=== PATIENT | female | born 1995 | race Caucasian/White ===

== ENCOUNTER 2024-05-27 13:34 | Emergency (ER) | payer OTHER, SELFPAY ==
[2024-05-27 13:42] VITALS: BP 114/74; PULSE 83; RESP 16; TEMP 36.8; O2SAT 99; BMI 25.9
[2024-05-27 14:59] LABS: Add Manual Diff / Slide Review NO; Basophils Absolute Auto 100 /uL (0-100); Basophils Percent Auto 0.7 % (0-2); Eosinophils Absolute Auto 100 /uL (0-450); Eosinophils Percent Auto 1.3 % (2-4); Hematocrit 41.8 % (36-46); Lymphocytes Absolute Auto 1400 /uL (1100-4500); Lymphocytes Percent Auto 18.2 % (25-40); Mean Corpuscular HGB Conc 33.4 % (30-36); Mean Corpuscular Hemoglobin 28.2 PG (26-34); Mean Corpuscular Volume 84.3 fL (80-100); Monocytes Absolute Auto 700 /uL (0-900); Monocytes Percent Auto 8.7 % (3-14); Neutrophils Absolute Auto 5600 /uL (1500-7000); Neutrophils Percent Auto 71.1 % (50-75); Platelet Count 205 X10^3/uL (150-400); Red Blood Cell Count 4.96 X10^6/uL (4.0-5.2); Red Cell Distribution Width 14.2 % (11.6-14.8); White Blood Cell Count 7.8 X10^3/uL (4.5-11.0)
[2024-05-27 15:10] LABS: Alanine Aminotransferase 23 IU/L (<35); Albumin 4.5 g/dL (3.5-5.0); Albumin Globulin Ratio 1.5 (1.0-2.8); Alkaline Phosphatase 40 U/L (38-126); Aspartate Aminotransferase 26 IU/L (14-36); BUN Creatinine Ratio 19.2 (6-22); Bilirubin Total 0.3 mg/dL (0.2-1.3); Blood Urea Nitrogen 10 mg/dL (7-17); Carbon Dioxide 22 mmol/L (22-32); Chloride 104 mmol/L (98-107); Estimated Glomerular Filt Rate > 60 mL/min (>60); Glucose 81 mg/dL (70-100); HEMOLYSIS < 15 (0-50); Lipase 74 U/L (23-300); Sodium 136 mmol/L (137-145); Total Protein 7.5 g/dL (6.3-8.2)
[2024-05-27] MEDS: ONDANSETRON 4 MG/2 ML INJ IV (15:18)
[2024-05-27] MEDS: SODIUM CHLORIDE 0.9% 1,000 ML 1000 ML IV ×2 (15:18→16:40)
--- NOTE | 2024-05-27 15:24 | ED_ITS ---
HPI - Recheck/Abnormal Lab/Rx General Chief Complaint: Recheck/Abnormal Lab/Rx Stated Complaint: /dehydration x2 days Time Seen by Provider: 05/27/24 15:14 Mode of arrival: Ambulatory History of Present Illness HPI narrative: Ms. Childs is a pleasant 29 year old female, currently about 9 weeks 6 days based on LMP 03/20/2024 with a past medical history of bipolar disorder on lamotrigine, sertraline who presents to the emergency department for persistent nausea and vomiting x2 days. Patient states for about the last 2 weeks during this she has been really nauseous with frequent vomiting. She has been evaluated in walk-in clinics and was prescribed Unisom and B6 which she has been taking without relief. She did have an initial intake appointment with her OBGYN at [facility] but has not yet had her 1st ultrasound. States that over the last 2 days she has been able to tolerate solid food but any time she tries to drink liquids she has immediate nausea and vomiting. She called her OBGYN office and they did send her a prescription for Phenergan which she has not yet picked up. She is concerned that she is dehydrated and said she has only been able to keep down solids and not fluids. She denies any other symptoms, she has no abdominal pain, pelvic cramping, dysuria, vaginal bleeding, fevers or other concerns. She is having normal bowel movements. Surgical history involves uterine polyp removal Related Data Previous Rx's Medication Instructions Recorded cephalexin 500 mg capsule 500 mg PO TID 5 days #15 caps 05/27/24 Allergies Allergy/AdvReac Type Severity Reaction Status Date / Time amoxicillin Allergy Verified 05/27/24 13:42 Review of Systems Review of Systems ROS Unobtainable: All systems reviewed & are unremarkable except as noted in HPI and below Patient History Social History Smoking Status: Never smoker Smoking Status: Never smoker Exam Narrative Exam Narrative: GENERAL: 29 year old patient appears stated age. Well-developed patient, in no acute distress. HEAD: Atraumatic. Normocephalic. NECK: Trachea midline. Cervical ROM intact. CARDIOVASCULAR: Regular rate and rhythm. RESPIRATORY: ?Nonlabored respirations. ?Speaking in clear, full sentences. ?Clear to auscultation. Breath sounds equal bilaterally. No wheezes, rales, or rhonchi. ? GASTROINTESTINAL: Abdomen soft, non-tender, nondistended. Normal BS. EXTREMITIES: No edema or joint tenderness. BACK: Nontender without deformity or crepitance. No flank tenderness. NEURO: AOx3. ?Clear speech. ?Moves all 4 extremities appropriately. SKIN: No rash or erythema of visible areas Initial Vital Signs Initial Vital Signs: Vital Signs Temperature 98.3 F 05/27/24 13:42 Pulse Rate 83 05/27/24 13:42 Respiratory Rate 16 05/27/24 13:42 Blood Pressure 114/74 05/27/24 13:42 Pulse Oximetry 99 05/27/24 13:42 Oxygen Delivery Method Room Air 05/27/24 13:42 Course Orders Ordered: ED Orders 05/27/24 14:47 Complete Blood Count AUTO DIFF Stat Comprehensive Metabolic Panel Stat Lipase Stat 05/27/24 16:20 Urine Microscopic Stat Discontinued Medications Sodium Chloride (Normal Saline 0.9%) 1,000 mls @ 1,000 mls/hr IV BOLUS ONE Stop: 05/27/24 16:03 Last Infusion: 05/27/24 16:15 Dose: Infused Documented By: Admin: 05/27/24 15:18 Dose: 1,000 mls/hr Documented By: CARMELLA Sodium Chloride (Normal Saline 0.9%) 1,000 mls @ 1,000 mls/hr IV BOLUS ONE Stop: 05/27/24 17:22 Last Infusion: 05/27/24 17:22 Dose: Infused Documented By: Admin: 05/27/24 16:40 Dose: 1,000 mls/hr Documented By: CARMELLA Metoclopramide HCl (Metoclopramide 10 Mg/2 Ml Inj) 10 mg IV NOW ONE Stop: 05/27/24 16:28 Last Admin: 05/27/24 16:40 Dose: 10 mg Documented By: CARMELLA Ondansetron HCl (Ondansetron 4 Mg/2 Ml Inj) 4 mg IV NOW PRN PRN Reason: Nausea And Vomiting Last Admin: 05/27/24 15:18 Dose: 4 mg Documented By: CARMELLA Ondansetron HCl (Ondansetron 4 Mg Odt) 4 mg SL NOW PRN PRN Reason: Nausea And Vomiting Last Admin: 05/27/24 17:31 Dose: 4 mg Documented By: KB Vital Signs Vital signs: Vital Signs - 8 hr 05/27/24 13:42 05/27/24 17:31 Temperature 98.3 F Pulse Rate 83 80 Respiratory Rate 16 18 Blood Pressure 114/74 Pulse Oximetry 99 98 Oxygen Delivery Method Room Air Room Air MDM - Recheck/Abnormal Lab/Rx Medical Records Medical records narrative: None available. Lab Data 05/27/24 14:47 05/27/24 14:47 Labs: Lab Results 05/27/24 05/27/24 Range/Units 14:47 16:20 WBC 7.8 (4.5-11.0) X10^3/uL RBC 4.96 (4.0-5.2) X10^6/uL Hgb 14.0 (12.0-16.0) g/dL Hct 41.8 (36-46) % MCV 84.3 (80-100) fL MCH 28.2 (26-34) PG MCHC 33.4 (30-36) % RDW 14.2 (11.6-14.8) % Plt Count 205 (150-400) X10^3/uL Neut % (Auto) 71.1 (50-75) % Lymph % (Auto) 18.2 L (25-40) % Charlton % (Auto) 8.7 (3-14) % Eos % (Auto) 1.3 L (2-4) % Baso % (Auto) 0.7 (0-2) % Neut # (Auto) 5600 (7671-4438) /uL Lymph # (Auto) 1400 (1476-6065) /uL Charlton # (Auto) 700 (0-900) /uL Eos # (Auto) 100 (0-450) /uL Baso # (Auto) 100 (0-100) /uL Sodium 136 L (137-145) mmol/L Potassium 4.0 (3.4-5.1) mmol/L Chloride 104 (98-107) mmol/L Carbon Dioxide 22 (22-32) mmol/L BUN 10 (7-17) mg/dL Creatinine 0.52 (0.52-1.04) mg/dL Estimated GFR > 60 (>60) mL/min BUN/Creatinine Ratio 19.2 (6-22) Glucose 81 (70-100) mg/dL Calcium 9.0 (8.4-10.2) mg/dL Total Bilirubin 0.3 (0.2-1.3) mg/dL AST 26 (14-36) IU/L ALT 23 (<35) IU/L Alkaline Phosphatase 40 (38-126) U/L Total Protein 7.5 (6.3-8.2) g/dL Albumin 4.5 (3.5-5.0) g/dL Globulin 3.0 (1.7-4.1) g/dL Albumin/Globulin Ratio 1.5 (1.0-2.8) Lipase 74 (23-300) U/L Urine RBC None seen (0-5/HPF) Urine WBC None seen (0-5/HPF) Ur Squamous Epith Cells 0-1 /hpf (0-5/HPF) Urine Bacteria Many (>30) H (None) Ur Culture Indicated? Cult not indicated Vol Urine Centrifuged 10ml (spun) MDM Narrative Medical decision making narrative: 29 year old female, currently about 9 weeks 6 days based on LMP 03/20/2024 with a past medical history of bipolar disorder on lamotrigine, sertraline who presents to the emergency department for persistent nausea and vomiting x2 days. Differential diagnosis includes but is not limited to nausea and vomiting of , hyperemesis gravidarum, dehydration, electrolyte abnormality, gastroenteritis, etc. On exam patient is in no acute distress, nontoxic appearing, all vital signs within normal limits. Lab work initiated in triage and she was given 4 mg of Zofran and 1 L of IV fluids. Her abdomen is soft and nontender and she has having no abdominal pain, pelvic cramping or bleeding, no emergent pelvic ultrasound warranted at this time. Labs reassuring with normal WBC count 7.8, hemoglobin 14.0 hematocrit 41.8. Sodium 136, potassium 4.0, BUN 10 creatinine 0.52. Normal LFTs and lipase. Urine micro reveals many bacteria, therefore we will treat as asymptomatic bacteria urine with Keflex p.o. t.i.d. x5 days. Patient was feeling much better after 1 L of normal saline however after attempting p.o. challenge she did have an episode of nausea again therefore was given Reglan and additional fluids. After this treatment she was tolerating p.o. and requesting discharge home. Discussed with the patient that Phenergan is preferred to Zofran in , she already has a prescription sent to her pharmacy from her OBGYN. We discussed strict ED return precautions, she has an appointment with her OBGYN later this week. She verbalized understanding of all information is agreeable with the plan. She is stable for discharge home. Discharge Plan Departure Patient Disposition: Home Clinical Impression: Vomiting during , Asymptomatic bacteriuria in Instructions: DI for Vomiting -- Adult Activity Restrictions/Additional Instructions: Thank you for coming to the emergency department. Today you were treated with IV fluids and IV nausea medication. Your lab work was overall reassuring however your urinalysis did show bacteria which would like to treat in . I have sent a course of antibiotics to your pharmacy that you may start tomorrow the please talk to your OBGYN for further evaluation. Please return to the emergency department you develop any new or worsening symptoms. Please use the prescribed Phenergan that was previously sent to your pharmacy if needed for nausea. Please follow up with your primary care doctor within the next 2-3 days for ER follow-up. (If you do not have a PCP you can call [phone]. ?to schedule an appointment with an [facility] Primary Care Provider) IF YOU DEVELOP ANY NEW OR WORSENING SYMPTOMS, RETURN TO THE ER! Please read the attached instructions, they highlight more specific treatments and interventions for you at home. Thank you for letting me participate in your care, Kianna Pinedo PA-C Prescriptions: New cephalexin 500 mg capsule 500 mg PO TID 5 Days Qty: 15 0RF Stand Alone Forms: Patient Portal/API/Survey
[2024-05-27] MEDS: METOCLOPRAMIDE 10 MG/2 ML INJ IV (16:40)
--- NOTE | 2024-05-27 16:51 | PC.NURSE ---
1625 failed PO fluid challenge, took sips and unable to keep PO down IV Reglan given & 2nd Liter of NS infusing
[2024-05-27 17:01] LABS: Bacteria Urine Many (>30); Culture Indicated Urine Cult Not Indicated; RBC Urine None Seen (0-5/HPF); Squamous Epithelial Cell Urine 0-1 /HPF (0-5/HPF); Urine Volume 10mL (spun); WBC Urine None Seen (0-5/HPF)
--- NOTE | 2024-05-27 17:23 | PC.NURSE ---
tolerating PO eating crackers, sipping water - has appetite; skin turgor improved, skin color pink, warm, dry; Reports feeling much better and nausea gone after Reglan; requesting PIV out and to go home; has OB appt Tommorrow
[2024-05-27 17:31] VITALS: PULSE 80; RESP 18; O2SAT 98
[2024-05-27] MEDS: ONDANSETRON 4 MG ODT SL (17:31)
== END 2024-05-27 17:44 | disposition home or self-care (01) ==
PROVIDERS: Emergency Medicine; Emergency Provider Physician Assistant
DX: O21.9 Vomiting of pregnancy, unspecified (principal); O26.891 Other specified pregnancy related conditions, first trimester; R82.71 Bacteriuria; Z3A.09 9 weeks gestation of pregnancy
CPT/HCPCS: 36415; 80053; 81015; 83690; 85025; 96361; 96374; 96375; 99284; J2405; J2765

== ENCOUNTER → 2024-06-26 11:22 | Outpatient (CLI) | payer OTHER, SELFPAY ==
[2024-06-26 11:58] LABS: Add Manual Diff / Slide Review NO; Basophils Absolute Auto 0 /uL (0-100); Basophils Percent Auto 0.6 % (0-2); Eosinophils Absolute Auto 100 /uL (0-450); Eosinophils Percent Auto 1.8 % (2-4); Hematocrit 40.5 % (36-46); Hemoglobin 13.6 g/dL (12.0-16.0); Lymphocytes Absolute Auto 1300 /uL (1100-4500); Lymphocytes Percent Auto 20.3 % (25-40); Mean Corpuscular HGB Conc 33.5 % (30-36); Mean Corpuscular Hemoglobin 28.5 PG (26-34); Monocytes Absolute Auto 500 /uL (0-900); Monocytes Percent Auto 8.4 % (3-14); Neutrophils Absolute Auto 4500 /uL (1500-7000); Neutrophils Percent Auto 68.9 % (50-75); Platelet Count 202 X10^3/uL (150-400); Red Blood Cell Count 4.76 X10^6/uL (4.0-5.2); Red Cell Distribution Width 14.3 % (11.6-14.8); White Blood Cell Count 6.5 X10^3/uL (4.5-11.0)
[2024-06-26 12:32] LABS: Natera Collection Specimen Collected
[2024-06-26 12:43] LABS: Appearance Urine UA CLOUDY; Bilirubin Urine UA NEGATIVE (NEGATIVE); Color Urine UA YELLOW; Glucose Urine UA NEGATIVE (Negative); Ketones Urine UA NEGATIVE (NEGATIVE); Leukocyte Esterase Urine UA NEGATIVE (NEGATIVE); Nitrite Urine UA NEGATIVE (Negative); Occult Blood Urine UA NEGATIVE (Negative); Protein Urine UA NEGATIVE (Negative); Urobilinogen Urine UA 0.2 E.U./dL (0.2)
[2024-06-26 12:48] LABS: pH Urine UA 7.5 (4.5-8.0)
[2024-06-26 14:40] LABS: Hepatitis B Surface Antigen NEGATIVE s/c (NEGATIVE); Rubella Antibody IgG 41.7 IU/mL (>15)
[2024-06-26 14:56] LABS: HIV 1 & 2 Ab/Ag 4th Gen Combo NEGATIVE (NEGATIVE); Hep C Virus Ab w/Reflex Quant NEGATIVE s/c (NEGATIVE)
[2024-06-27 03:10] LABS: RPR Screen Non Reactive (Non Reactive)
[2024-06-27 10:11] LABS: Varicella IgG Antibody Reactive (Non Reactive)
== END ==
PROVIDERS: Referring Provider Family Medicine; Visit Provider Family Medicine
DX: Z34.02 Encounter for supervision of normal first pregnancy, second trimester (principal)
CPT/HCPCS: 80055; 81003; 86787; 86803; 86850; 86900; 86901; 87086; 87389

== ENCOUNTER → 2024-08-10 13:36 | Outpatient (CLI) | payer OTHER, SELFPAY ==
--- NOTE | 2024-08-10 13:38 | DI.US.S_ITS ---
PROCEDURE: US OB >= 14 WEEKS FETUS INDICATIONS: Complete Anatomy Scan OUTSIDE/PRIOR DATING DATA: Last menstrual period (LMP): 03/20/2024. LMP-based estimated date of delivery (SHAY): 12/25/2024. First dating scan (date and location): 06/04/2024. Estimated date of delivery (SHAY) from first dating scan: 12/22/2024. The calculations are made using the working SHAY of 12/25/2024. TECHNIQUE: Real-time scanning was performed of the fetus, with image documentation and biometric measurements. Endovaginal scanning: No COMPARISON: None. FINDINGS: General: A single living intrauterine gestation is present. Presentation: Vertex. Placenta: Placental position is posterior , without previa. Amniotic fluid index: 16.6 cm, normal range is 5-24 cm. Single deepest vertical pocket is 5.1 cm. heart rate: 147 beats per minute. Maternal cervical canal: 5.9 cm long. Normal lower limit is 2.5 cm. biometrics: Biparietal diameter: 5.2 cm, 21 week 5 day Head circumference: 18.8 cm, 21 week 0 day Abdominal circumference: 17.0 cm, 22 week 0 day Femur length: 3.4 cm, 22 week 4 day Clinically estimated gestational age: 20 week 3 day Composite gestational age from present scan: 21 week 2 day Estimated weight and percentile: 418 g, 90 percentile Anatomic survey: Neuro: Ventricles are non-dilated at less than 10 mm. Cisterna magna is normal at 3-11 mm. Cerebellum is normal in size and morphology. Nuchal skin fold: Normal at less than 6 mm between 14-21 weeks gestational age. Face: Nose and lips, facial profile are normal. Spine: No evidence for spina bifida. Heart: 4-chambered heart is present, with normal ventricular outflow tracts. Diaphragm: Diaphragm is intact. Stomach: Left-sided stomach is present. Kidneys: No hydronephrosis. Normal is less than 5 mm in 2nd trimester, less than 7 mm in 3rd trimester. Cord: 3-vessel cord has orthotopic insertion. Bladder: Normal in size. Extremities: All 4 extremities identified. IMPRESSION: Single live intrauterine consistent with 21 week 2 day gestation Approved by: Michel Lindo M.D. on 08/13/2024 at 11:27
== END ==
PROVIDERS: Referring Provider Family Medicine; Visit Provider Family Medicine
DX: Z36.3 Encounter for antenatal screening for malformations (principal); Z3A.21 21 weeks gestation of pregnancy
CPT/HCPCS: 76811

== ENCOUNTER 2024-10-07 20:05 | Observation (INO) | payer OTHER, SELFPAY ==
[2024-10-07] VITALS (7 sets, daily range): BP systolic 101–123; BP diastolic 63–69; PULSE 80–94; RESP 13–26; TEMP 36.7; O2SAT 95–97; BMI 30.4
[2024-10-07] MEDS: MINERAL OIL 1 EACH ENEMA PR (23:03)
[2024-10-07] MEDS: ONDANSETRON 4 MG ODT SL (23:08)
--- NOTE | 2024-10-07 23:26 | ED.ABDPAIN ---
HPI - Abdominal Pain General Chief Complaint: Abdominal Pain Stated Complaint: Abd pain, hemorrhoids x 5days Time Seen by Provider: 10/07/24 22:40 Source: patient Mode of arrival: Wheelchair History of Present Illness HPI narrative: 29-year-old primigravida with EDC 12/25/2024, current estimated gestational age 28.5 weeks, complaining of possible constipation. No vaginal bleeding or leaking of fluids. Not really feeling contractions. No fevers or chills. No cough or shortness of breath. Related Data Home Medications ?Medication ?Instructions ?Recorded ?Confirmed lamotrigine 200 mg tablet,extended 200 mg PO DAILY 06/07/24 10/08/24 release 24 hr vit no.95-ferrous 1 tab PO DAILY 06/07/24 10/08/24 fumarate 28 mg-folic acid 800 mcg tablet ( Multivitamins) sertraline 50 mg tablet 50 mg PO DAILY 06/07/24 10/08/24 lamotrigine 200 mg tablet 200 mg PO DAILY 08/24/24 10/08/24 Previous Rx's ?Medication ?Instructions ?Recorded doxylamine succinate 25 mg tablet 25 mg PO BEDTIME PRN nausea and 07/18/24 (Unisom (doxylamine)) vomiting #30 tabs ondansetron 8 mg disintegrating 8 mg PO BID PRN nausea and 07/18/24 tablet vomiting #60 tabs Allergies Allergy/AdvReac Type Severity Reaction Status Date / Time shrimp Allergy Severe Swelling Verified 10/08/24 00:08 of Lip/Tongue/Throat amoxicillin Allergy Mild Rash Verified 10/08/24 00:08 grapefruit Allergy Mild Rash Verified 10/08/24 00:08 banana AdvReac Intermediate Abdominal Verified 10/08/24 00:08 Pain Patient History Medical History (Updated 10/07/24 @ 23:37 by Francisco Ramirez MD) Infertility Bacterial vaginitis (~2023) Concussion Endometrial polyp Surgical History (Updated 06/07/24 @ 12:32 by Rachel Grigsby RN) [place] teeth extracted History of removal of skin mole (~2021) History of hysteroscopy (~03/2024) Family History (Updated 06/07/24 @ 11:06 by Rachel Grigsby RN) Aunt Breast cancer Grandmother Thyroid disease History of thyroid surgery Father Obesity Prediabetes Substance abuse Aunt H/O: hysterectomy POTS (postural orthostatic tachycardia syndrome) Grandfather Skin cancer Grandfather Dementia Uncle Congenital hip dysplasia Social History marital status: number of children: 0 household members: spouse lives independently: Yes caregiver/support person: No housing: house pets and animals: Yes (chickens, dog, cat) education level: vocational occupational status: employed (retail) current occupational exposures/hazards: No special malu needs: No travel history: recent (going to [place] next week) Smoking Status: Never smoker Tobacco: How many years used: 1 second hand exposure: Yes ( vapes, not around pt since ) alcohol intake: former (occasionally when not ) substance use type: does not use during the past year weight has: other (lost ~30 lb but gained it back after surgery) well-balanced diet: daily or most days (mostly in smoothies) daily servings fruits/ve-4 caffeine: Yes (quit with ) Smoking Status: Never smoker Exam Narrative Exam Narrative: GENERAL: Well-developed patient, in mild distress. HEAD: Atraumatic. Normocephalic. EYES: Pupils equal round and reactive. Extraocular motions intact. No scleral icterus. No injection or drainage. ENT: Nose without bleeding, purulent drainage. Throat without erythema, tonsillar hypertrophy or exudate. Airway patent. NECK: Trachea midline. Non tender CARDIOVASCULAR: Regular rate and rhythm without murmurs, gallops, or rubs. RESPIRATORY: Clear to auscultation. Breath sounds equal bilaterally. No wheezes, rales, or rhonchi. GASTROINTESTINAL: Abdomen gravid, EFM in place. Nontender. EXTREMITIES: No edema or joint tenderness. BACK: Nontender without deformity or crepitance. No flank tenderness. NEURO: AOx3. Motor functions grossly nonfocal. SKIN: No rash or erythema of visible areas Initial Vital Signs Initial Vital Signs: Vital Signs Temperature 98.1 F 10/07/24 20:15 Pulse Rate 87 10/07/24 20:15 Respiratory Rate 26 H 10/07/24 20:15 Blood Pressure 123/68 10/07/24 20:15 Pulse Oximetry 96 10/07/24 20:15 Oxygen Delivery Method Room Air 10/07/24 20:15 Course Orders Ordered: ED Orders 10/08/24 00:00 US OB limited Stat Lactated Ringer's (Lactated Ringers) 1,000 mls @ 1,000 mls/hr IV BOLUS ONE Stop: 10/08/24 02:09 Last Admin: 10/08/24 01:22 Dose: 1,000 mls/hr Documented By: LUIS M Phenyleph/Shark Oil/Min Oil/Petrol (Phenyleph/Mineral Oil/Petrolat 57 Gm Oint) 1 applic MO PRN PRN PRN Reason: Hemorrhoids Witch La/Glycerin (Witch La/Glycerin Pads) 1 each TOP Q30M PRN PRN Reason: Itching Discontinued Medications Lactated Ringer's (Lactated Ringers) 1,000 mls @ 1,000 mls/hr IV BOLUS ONE Stop: 10/08/24 00:23 Last Admin: 10/07/24 23:40 Dose: 1,000 mls/hr Documented By: LUIS M Magnesium Citrate (Magnesium Citrate 300 Ml Solution) 300 ml PO NOW ONE Stop: 10/08/24 01:01 Magnesium Hydroxide (Magnesium Hydroxide 30 Ml Udc) 30 ml PO NOW ONE Stop: 10/08/24 01:01 Last Admin: 10/08/24 01:25 Dose: 30 ml Documented By: LUIS M Mineral Oil (Mineral Oil 1 Each Enema) 1 each MO NOW ONE Stop: 10/07/24 23:02 Last Admin: 10/07/24 23:03 Dose: 1 each Documented By: ABDIEL Nifedipine (Nifedipine 10 Mg Capsule) 10 mg PO Q20M DEBBIE Stop: 10/08/24 00:31 Last Admin: 10/08/24 00:54 Dose: 10 mg Documented By: LUIS M Admin: 10/08/24 00:30 Dose: 10 mg Documented By: LUIS M Admin: 10/08/24 00:10 Dose: 10 mg Documented By: LUIS M Admin: 10/07/24 23:50 Dose: 10 mg Documented By: LUIS M Ondansetron HCl (Ondansetron 4 Mg Odt) 4 mg SL NOW ONE Stop: 10/07/24 23:07 Last Admin: 10/07/24 23:08 Dose: 4 mg Documented By: ABDIEL Sodium Biphosphate/Sodium Phosphate (Fleets Enema) 1 each MO NOW ONE Stop: 10/07/24 22:54 Last Admin: 10/07/24 23:02 Dose: Not Given Documented By: MLM Vital Signs Vital signs: Vital Signs - 8 hr 10/07/24 20:15 10/07/24 20:23 10/07/24 20:23 Temperature 98.1 F Pulse Rate 87 94 H Respiratory Rate 26 H Blood Pressure 123/68 101/63 Pulse Oximetry 96 95 Oxygen Delivery Method Room Air 10/07/24 20:30 10/07/24 20:30 10/07/24 20:45 Temperature Pulse Rate 85 80 Respiratory Rate 13 24 Blood Pressure 112/69 Pulse Oximetry 95 97 Oxygen Delivery Method 10/07/24 20:45 10/07/24 21:00 10/07/24 21:30 Temperature Pulse Rate 87 84 Respiratory Rate 19 18 Blood Pressure 112/69 Pulse Oximetry Oxygen Delivery Method 10/07/24 22:00 Temperature Pulse Rate 87 Respiratory Rate 15 Blood Pressure Pulse Oximetry Oxygen Delivery Method MDM - Abdominal Pain MDM Narrative Medical decision making narrative: 29-year-old primigravida 28 and 1/2 weeks gestation with abdominal discomfort, scant loose stool, concerned about constipation. No vaginal bleeding. No leaking of vaginal fluid. EFM requested, placed by OB nurse at bedside, patient appears to be having contractions that she has not feel. Transfer over to [facility] for further evaluation. contractions noted. 2330, discussed with OB provider on-call Dr. Mak who accepts patient for transfer to [facility] for further evaluation. Discharge Plan Departure Patient Disposition: Admitted as Observation Clinical Impression: contractions, Admit Date/Time: 10/07/24 23:38 Admit Provider: Dannie Mak
[2024-10-07] MEDS: LACTATED RINGERS 1,000 ML 1000 ML IV (23:40)
--- NOTE | 2024-10-07 23:54 | PC.NURSE ---
Pt co clear liquid when trying to void. Notified provider and Family birthplace. Rn here for NST.
--- NOTE | 2024-10-08 | DI.US.S_ITS ---
PROCEDURE: US OB LIMITED INDICATIONS: LABOR; CERVICAL LENGTH OUTSIDE/PRIOR DATING DATA: Last menstrual period (LMP): 03/20/2024. LMP-based estimated date of delivery (SHAY): 12/25/2024. First dating scan (date and location): 06/04/2024. Estimated date of delivery (SHAY) from first dating scan: 12/22/2024. The calculations are made using the clinical SHAY of 12/25/2024. TECHNIQUE: Real-time scanning was performed of the fetus, with image documentation and biometric measurements. COMPARISON: [facility], , OB >= 14 WEEKS FETUS, 08/10/2024, 14:08. FINDINGS: General: A single living intrauterine gestation is present. Presentation: Vertex. Placenta: Placental position is posterior , without previa. Amniotic fluid index: 30.4 cm, normal range is 5-24 cm. Single deepest vertical pocket is 11.1 cm. heart rate: 153 beats per minute. Maternal cervical canal: 3.9 cm long. Normal lower limit is 2.5 cm. biometrics: Clinically estimated gestational age: 28 weeks 6 days Other: Not applicable. IMPRESSION: Single live intrauterine with gestational age of 20 weeks 6 days. CONNOR is greater than expected for patient age in consistent with polyhydramnios. We strive to produce accurate, complete, and clear reports of imaging services. To assist us in improving patient care, this report was composed using standard report templates and voice recognition software. Therefore, it may contain abnormal punctuation, insertions and/or omissions. Occasional wrong-word or sound-alike substitutions may occur. Though we review the report and make efforts to correct it, we do recommend that the report be read carefully in proper context to recognize any text inaccuracies. Dictated by: Valentina Dawkins M.D. on 10/08/2024 at 1:00 Approved by: Valentina Dawkins M.D. on 10/08/2024 at 1:02
[2024-10-08] MEDS: LACTATED RINGERS 1,000 ML 1000 ML IV (01:22)
[2024-10-08] MEDS: MAGNESIUM HYDROXIDE 30 ML UDC PO (01:25)
--- NOTE | 2024-10-08 02:11 | PM.OBTRLD ---
Visit Information Visit Information Date of evaluation: 10/07/24 Primary OB Provider: Dannie Mak On-call OB Provider: Dannie Mak Reason for Evaluation: Yes other Comments/Additional reasons for admission: 29yo G1 at GA 28+6 weeks. Presented to ER for severe constipation. Received enema w/some relief. Noted to be naida q2-3 min though initially not felt by pt. Endorses normal movement. Denies vb, lof. Vital Signs Vital Signs: Vital Signs - 8 hr 10/08/24 02:35 Temperature 98.1 F Pulse Rate 87 Respiratory Rate 15 Blood Pressure 112/69 [facility] Medical History (Updated 10/07/24 @ 23:37 by Francisco Ramirez MD) Infertility Bacterial vaginitis (~2023) Concussion Endometrial polyp Surgical History (Updated 06/07/24 @ 12:32 by Rachel Grigsby RN) [place] teeth extracted History of removal of skin mole (~2021) History of hysteroscopy (~03/2024) Family History (Updated 06/07/24 @ 11:06 by Rachel Grigsby RN) Aunt Breast cancer Grandmother Thyroid disease History of thyroid surgery Father Obesity Prediabetes Substance abuse Aunt H/O: hysterectomy POTS (postural orthostatic tachycardia syndrome) Grandfather Skin cancer Grandfather Dementia Uncle Congenital hip dysplasia Social History marital status: number of children: 0 household members: spouse lives independently: Yes caregiver/support person: No housing: house pets and animals: Yes (chickens, dog, cat) education level: vocational occupational status: employed (retail) current occupational exposures/hazards: No special malu needs: No travel history: recent (going to [place] next week) Smoking Status: Never smoker Tobacco: How many years used: 1 second hand exposure: Yes ( vapes, not around pt since ) alcohol intake: former (occasionally when not ) substance use type: does not use during the past year weight has: other (lost ~30 lb but gained it back after surgery) well-balanced diet: daily or most days (mostly in smoothies) daily servings fruits/ve-4 caffeine: Yes (quit with ) Review of Systems Review of Systems ROS: Yes All systems reviewed with the patient and are negative except as otherwise documented Exam Vital Signs (past 8 hours): - 10/08/24 02:35 Temperature 98.1 F Pulse Rate 87 Respiratory Rate 15 Blood Pressure 112/69 Oxygen Delivery Method Room Air Objective Imaging US- OB: Radiologist's impression: FINDINGS: General: A single living intrauterine gestation is present. Presentation: Vertex. Placenta: Placental position is posterior , without previa. Amniotic fluid index: 30.4 cm, normal range is 5-24 cm. Single deepest vertical pocket is 11.1 cm. heart rate: 153 beats per minute. Maternal cervical canal: 3.9 cm long. Normal lower limit is 2.5 cm. biometrics: Clinically estimated gestational age: 28 weeks 6 days Other: Not applicable. IMPRESSION: Single live intrauterine with gestational age of 20 weeks 6 days. CONNOR is greater than expected for patient age in consistent with polyhydramnios. Dictated by: Valentina Dawkins M.D. on 10/08/2024 at 1:00 Approved by: Valentina Dawkins M.D. on 10/08/2024 at 1:02 Evaluation Evaluation Baseline heart rate: 150 Variability: Moderate (6-25) monitor accelerations: Present Monitor Decelerations: Absent Contraction Frequency (minutes): 2 Uterine Contraction Intensity: Mild Category of Tracing: Reactive Status: Category l Diagnosis, Plan/Disposition Final Diagnosis (1) contractions: Status: Acute (2) Nausea/vomiting in : Status: Acute Plan/Disposition Plan: Constipation and nausea/vomiting treated w/multi-modal approach including enema in ER. Ctx not initially felt by pt, improved s/p 2L IVF bolus to address likely dehydration from GI losses. Will send additional anti-emetic to pt pharmacy. Follow-up this week for routine OB. OB Disposition: home
[2024-10-08] MEDS: MAGNESIUM CITRATE 300 ML SOLUTION PO (02:25)
[2024-10-08 02:35] VITALS: BP 112/69; PULSE 87; RESP 15; TEMP 36.7
== END 2024-10-08 02:35 | disposition home or self-care (01) ==
LOC: ED 23:37 → LABOR 23:49
PROVIDERS: Admitting Provider Family Medicine; Emergency Provider Emergency Medicine; Visit Provider Family Medicine
DX: O47.03 False labor before 37 completed weeks of gestation, third trimester (principal); O26.893 Other specified pregnancy related conditions, third trimester; R11.2 Nausea with vomiting, unspecified; Z3A.28 28 weeks gestation of pregnancy
CPT/HCPCS: 36415; 59025; 59050; 76815; 76817; 96360; 99284; G0378

== ENCOUNTER → 2024-10-11 12:20 | Outpatient (CLI) | payer OTHER, SELFPAY ==
--- NOTE | 2024-10-11 12:22 | DI.US.S_ITS ---
PROCEDURE: US OB LIMITED INDICATIONS: Growth OUTSIDE/PRIOR DATING DATA: The calculations are made using the working SHAY of 12/25/24. TECHNIQUE: Real-time scanning was performed of the fetus, with image documentation and biometric measurements. Endovaginal scanning: Not performed COMPARISON: [facility], , OB LIMITED, 10/08/2024, 0:28. FINDINGS: General: A single living intrauterine gestation is present. Presentation: Vertex. Placenta: Placental position is left and posterior , without previa. Amniotic fluid index: 29.4 cm, normal range is 5-24 cm. Single deepest vertical pocket is 13.0 cm. heart rate: 141 beats per minute. Maternal cervical canal: Not well seen biometrics: Biparietal diameter: 8.3 cm, 33 weeks two days Head circumference: 28.6 cm, 31 weeks three days Abdominal circumference: 26.6 cm, 30 weeks five days Femur length: 5.4 cm, 28 weeks five days Clinically estimated gestational age: 29 weeks two days Composite gestational age from present scan: 31 weeks 0 days Estimated weight and percentile: 1556 g, 76th percentile IMPRESSION: Single living with estimated weight at the 76th percentile. Composite gestational age is one week and five days ahead of the expected gestational age. Polyhydramnios. We strive to produce accurate, complete, and clear reports of imaging services. To assist us in improving patient care, this report was composed using standard report templates and voice recognition software. Therefore, it may contain abnormal punctuation, insertions and/or omissions. Occasional wrong-word or sound-alike substitutions may occur. Though we review the report and make efforts to correct it, we do recommend that the report be read carefully in proper context to recognize any text inaccuracies. Dictated by: Mary Jo Yost M.D. on 10/11/2024 at 15:59 Approved by: Mary Jo Yost M.D. on 10/11/2024 at 16:03
[2024-10-11 15:42] LABS: Hematocrit 36.4 % (36-46); Hemoglobin 12.3 g/dL (12.0-16.0)
[2024-10-11 16:45] LABS: GTT (PREG) 1 Hour PP 50gm Dose 126 mg/dL (76-139)
== END ==
LOC: US 12:21
PROVIDERS: Referring Provider Family Medicine; Visit Provider Family Medicine
DX: O36.63X0 Maternal care for excessive fetal growth, third trimester, not applicable or unspecified (principal); O40.3XX0 Polyhydramnios, third trimester, not applicable or unspecified; Z3A.31 31 weeks gestation of pregnancy
CPT/HCPCS: 36415; 76815; 82950; 85014; 85018

== ENCOUNTER → 2024-11-05 15:08 | Outpatient (CLI) | payer OTHER, SELFPAY ==
--- NOTE | 2024-11-05 15:09 | DI.US.S_ITS ---
PROCEDURE: US OB LIMITED INDICATIONS: growth, CONNOR OUTSIDE/PRIOR DATING DATA: Last menstrual period (LMP): 03/20/2024 LMP-based estimated date of delivery (SHAY): 12/25/2024 First dating scan (date and location): 06/04/2024 Estimated date of delivery (SHAY) from first dating scan: 12/22/2024 The calculations are made using the working SHAY of 12/25/2024. TECHNIQUE: Real-time scanning was performed of the fetus, with image documentation and biometric measurements. Endovaginal scanning: Not performed COMPARISON: [facility], OB LIMITED, 10/11/2024, 13:06. FINDINGS: General: A single living intrauterine gestation is present. Presentation: Vertex Placenta: Placental position is left posterior, without previa. Amniotic fluid index: 25.9 cm, normal range is 5-24 cm. Single deepest vertical pocket is 11.8 cm. heart rate: 157 beats per minute. Maternal cervical canal: Closed and measures 4.5 cm long. Normal lower limit is 2.5 cm. biometrics: Biparietal diameter: 9.0 cm, 36 weeks, 4 days. Head circumference: 32.5 cm, 36 weeks, 6 days. Abdominal circumference: 31.3 cm, 35 weeks, 1 day. Femur length: 6.2 cm, 32 weeks, 0 day. Clinically estimated gestational age: 32 weeks, 6 days. Composite gestational age from present scan: 35 weeks, 1 day. Estimated weight and percentile: 2476 g, 90%. IMPRESSION: 1. Single live intrauterine gestation with fetus in vertex presentation. heart rate is 157 beats per minute. Slightly increased amount of amniotic fluid measures 25.9 cm. 2. Estimated weight is at 90%. Femur length measures 32 weeks 0 day on the current study. We strive to produce accurate, complete, and clear reports of imaging services. To assist us in improving patient care, this report was composed using standard report templates and voice recognition software. Therefore, it may contain abnormal punctuation, insertions and/or omissions. Occasional wrong-word or sound-alike substitutions may occur. Though we review the report and make efforts to correct it, we do recommend that the report be read carefully in proper context to recognize any text inaccuracies. Dictated by: Epifanio Alvarado M.D. on 11/06/2024 at 15:34 Approved by: Epifanio Alvarado M.D. on 11/06/2024 at 15:37
== END ==
LOC: US 15:09
PROVIDERS: Referring Provider Family Medicine; Visit Provider Family Medicine
DX: O40.3XX0 Polyhydramnios, third trimester, not applicable or unspecified (principal)
CPT/HCPCS: 76815

== ENCOUNTER → 2024-11-12 15:01 | Outpatient (CLI) | payer OTHER, SELFPAY | LOC: CAR 15:02 | PROVIDERS: Referring Provider Family Medicine; Visit Provider Family Medicine | DX: R00.2 Palpitations (principal) | CPT/HCPCS: 93246 ==

== ENCOUNTER 2024-12-18 18:53 | Inpatient (IN) | payer OTHER, SELFPAY ==
[2024-12-18 20:31] LABS: Add Manual Diff / Slide Review NO; Hematocrit 33.4 % (36-46); Hemoglobin 11.1 g/dL (12.0-16.0); Lymphocytes Absolute Auto 1300 /uL (1100-4500); Mean Corpuscular HGB Conc 33.2 % (30-36); Mean Corpuscular Hemoglobin 26.5 PG (26-34); Mean Corpuscular Volume 79.9 fL (80-100); Platelet Count 194 X10^3/uL (150-400)
[2024-12-18] MEDS: LACTATED RINGERS 1,000 ML 100 ML IV (20:50)
[2024-12-18] MEDS: FAMOTIDINE 20 MG TABLET PO (21:17)
[2024-12-18] MEDS: SERTRALINE 50 MG TABLET PO (21:17)
[2024-12-18] MEDS: diphenhydrAMINE 25 MG TABLET PO (22:49)
[2024-12-19] MEDS: diphenhydrAMINE 25 MG TABLET PO ×3 (06:02→20:14)
--- NOTE | 2024-12-19 08:08 | PM.OBHP.IH.1 ---
OB HPI Date/Time Date of admission: 12/18/24 History of Present Condition Chief complaint: induction SHAY Calculator Estimated Delivery Date Method Current WG Current Estimate 12/25/24 LMP (Certain) 39w 1d Other Estimates 12/22/24 Ultrasound #1 39w 4d Estimated Gestational Age (weeks): 39 : 1 Para: 0 Narrative: 29-year-old at GA 39+1 weeks presenting for IOL. Endorses normal movement. Denies vaginal bleeding or denies leakage of fluid. course notable for bipolar disease with depression on lamotrigine and sertraline with regular psychiatric care, idiopathic mild polyhydramnios, contractions, borderline macrosomia (EFW 3158 g, 86th %ile at 36 weeks). care: good care Dating criteria OB: LMP confirmed by 1st trimester US Ultrasounds: normal 1st trimester US and abnormal US findings (macrosomia on anatomy US) Obstetrical complications: other (mild polyhydramnios) Medical complications OB: psychiatric (bipolar depression) Indications Indication for induction OB: medical complication (worsening bipolar depression/anxiety) Preadmission Labs Last OB Lab Results: Blood Type A Positive 12/18/24, :25 Antibody Screen Negative 12/18/24, :25 Hct, (36-46) 33.4 % L 12/18/24, :25 Hgb, (12.0-16.0) 11.1 g/dL L 12/18/24, 19:25 Hep Bs Antigen, (NEGATIVE) Negative s/c 06/26/24, 11:31 Hepatitis C Antibody, (NEGATIVE) Negative s/c 06/26/24, 11:31 Rubella Antibody, (>15) 41.7 IU/mL 06/26/24, 11:31 VZV IgG Antibody, (Non Reactive) Reactive 06/26/24, 11:31 Glucose 1 Hr 50 gm, (76-139) 126 mg/dL 10/11/24, 14:38 Group B Strep (PCR) Neg for grp b strep 11/30/24, 15:30 Evaluation Evaluation Baseline heart rate: 120 Variability: Moderate (6-25) monitor accelerations: Present Monitor Decelerations: Episodic Contraction Frequency (minutes): 2 Status: Category ll Dilation: 1-2 cm Effacement: 0-30% station: -3 Position of cervix: mid Consistency: medium Mai score: 3 [facility] Medical History (Updated 10/10/24 @ 15:29 by Dannie Mak MD) Infertility Bacterial vaginitis (~2023) Concussion Endometrial polyp Surgical History (Updated 06/07/24 @ 12:32 by Rachel Grigsby, KENNY) [place] teeth extracted History of removal of skin mole (~2021) History of hysteroscopy (~03/2024) Family History (Updated 06/07/24 @ 11:06 by Rachel Grigsby RN) Aunt Breast cancer Grandmother Thyroid disease History of thyroid surgery Father Obesity Prediabetes Substance abuse Aunt H/O: hysterectomy POTS (postural orthostatic tachycardia syndrome) Grandfather Skin cancer Grandfather Dementia Uncle Congenital hip dysplasia Social History marital status: number of children: 0 household members: spouse lives independently: Yes caregiver/support person: No housing: house pets and animals: Yes (chickens, dog, cat) education level: vocational occupational status: employed (retail) current occupational exposures/hazards: No special malu needs: No travel history: recent (going to [place] next week) Smoking Status: Never smoker Tobacco: How many years used: 1 second hand exposure: Yes ( vapes, not around pt since ) alcohol intake: former (occasionally when not ) substance use type: does not use during the past year weight has: other (lost ~30 lb but gained it back after surgery) well-balanced diet: daily or most days (mostly in smoothies) daily servings fruits/ve-4 caffeine: Yes (quit with ) Meds Home Medications and Allergies Home Medications ?Medication ?Instructions ?Recorded ?Confirmed ?Type lamotrigine 200 mg tablet,extended 200 mg PO DAILY 06/07/24 11/30/24 History release 24 hr vit no.95-ferrous 1 tab PO DAILY 06/07/24 11/30/24 History fumarate 28 mg-folic acid 800 mcg tablet ( Multivitamins) sertraline 50 mg tablet 50 mg PO DAILY 06/07/24 11/30/24 History lamotrigine 200 mg tablet 200 mg PO DAILY 08/24/24 11/30/24 History diphenhydramine HCl 25 mg capsule 25 mg PO Q4-6H PRN nausea and 10/08/24 11/30/24 Rx vomiting #30 caps promethazine 12.5 mg rectal 12.5 mg AR Q4-6H PRN nausea and 10/08/24 11/30/24 Rx suppository (Promethegan) vomiting #12 ea ondansetron 8 mg disintegrating 8 mg PO BID PRN nausea and 11/02/24 11/30/24 Rx tablet vomiting #60 tabs famotidine 20 mg tablet 20 mg PO BID #60 tabs 11/16/24 11/30/24 Rx Allergies Allergy/AdvReac Type Severity Reaction Status Date / Time shrimp Allergy Severe Swelling Verified 11/30/24 13:43 of Lip/Tongue/Throat amoxicillin Allergy Mild Rash Verified 11/30/24 13:43 grapefruit Allergy Mild Rash Verified 11/30/24 13:43 banana AdvReac Intermediate Abdominal Verified 11/30/24 13:43 Pain Review of Systems Review of Systems ROS: Yes All systems reviewed with the patient and are negative except as otherwise documented OB Exam Narrative Exam Narrative: General: Well-nourished, no distress HEENT: NC/AT, EOMI, moist mucous membranes CV: RRR, normal S1 S2, no m/g/r Resp: CTAB Abd: Gravid, soft, NTND, +BS Ext: Full ROM, no edema Skin: No rash or lesions Neuro: A&O x3, normal tone, no focal deficits Objective Labs 12/18/24 19:25 Labs: Laboratory Results - last 24 hr 12/18/24 19:25 WBC 6.8 RBC 4.18 Hgb 11.1 L Hct 33.4 L MCV 79.9 L MCH 26.5 MCHC 33.2 RDW 13.8 Plt Count 194 Neut % (Auto) 65.2 Lymph % (Auto) 19.6 L [place] % (Auto) 10.6 Eos % (Auto) 3.8 Baso % (Auto) 0.8 Neut # (Auto) 4400 Lymph # (Auto) 1300 [place] # (Auto) 700 Eos # (Auto) 300 Baso # (Auto) 100 Blood Type A Positive Antibody Screen Negative Assessment and Plan Assessment and Plan Assessment and Plan narrative: 29-year-old at GA 39+1 weeks presenting for IOL. -admit to L&D -sve: 04/23/-3/mid/medium this morning -rapp balloon placed -cervical ripening with misoprostol q4h -GBS negative, ppx not indicated -pain control prn if desired by patient -PPH risk low -VTE risk low, SCDs with epidural -anticipate vaginal delivery Time-Based Coding :: 40 minutes spent with patient and on the chart (including review of chart, obtaining history, exam, reviewing outside data, placing orders, documenting exam and treatment plan, and counseling patient) on 12/19/2024.
[2024-12-19] MEDS: LACTATED RINGERS 1,000 ML 100 ML IV (10:43)
--- NOTE | 2024-12-19 10:52 | PM.AN.REGBLK ---
[facility] <Ember Campbell CRNA - Last Filed: 12/19/24 11:08> Pre-procedure Procedure: Continuous Lumbar Epidural for L&D (CSE) Attending OB provider: Dannie Mak PMH/ROS narrative: Called to bedside for placement of labor epidural for 29y/o 39+1 weeks admitted for IOL. PSH/Anesthesia history narrative: See pre-anesthesia documentation Exam narrative: Patient appears anxious and in mild distress from labor pain. Support people x2 at bedside. ASA Class: II Labs: Hct 33.4 % (36-46) L 12/18/24 19:25 Plt Count 194 X10^3/uL (150-400) 12/18/24 19:25 Medications: Current Medications Generic Name Dose Route Start Last Admin Trade Name Freq PRN Reason Stop Dose Admin Carboprost Tromethamine 250 mcg 12/18/24 20:21 Carboprost 250 Mcg/Ml Ampul IM Q90M PRN Bleeding Diphenhydramine HCl 25 mg 12/18/24 20:49 12/19/24 06:02 Diphenhydramine 25 Mg Tablet PO 25 mg Q4H PRN Administration nausea and vomiting Diphenhydramine HCl 25 mg 12/19/24 09:48 Diphenhydramine 50 Mg/Ml Vial IV Q10M PRN Pruritis Ephedrine Sulfate 10 mg 12/19/24 09:48 Ephedrine 50 Mg/Ml Vial IV Q5M PRN Blood pressure decrease more than 20% of baseline. Famotidine 20 mg 12/18/24 21:00 12/18/24 21:17 Famotidine 20 Mg Tablet PO 20 mg BID DEBBIE Administration Oxytocin/Lactated Ringer's 30 unit in 500 mls @ 200 mls/hr 12/18/24 20:21 Oxytocin Premix IV CONT PRN Bleeding Protocol Tranexamic Acid 1,000 mg/ 100 mls @ 600 mls/hr 12/18/24 20:21 Sodium Chloride IV NOW PRN Bleeding Oxytocin/Lactated Ringer's 30 unit in 500 mls @ 2 mls/hr 12/18/24 20:30 Oxytocin Premix IV TITRATE DEBBIE Protocol 2 MILLIUNIT/MIN FENT 2MCG/ML BUPIV 0.125% EPI 200 mcg in 100 mls @ 6 mls/hr 12/19/24 10:00 Fentanyl/Bupiv/Ns 2mcg/Ml - 0.125% EPIDURAL CONT DEBBIE Lamotrigine 200 mg 12/18/24 21:00 12/18/24 21:17 Lamotrigine 100 Mg Tablet PO 200 mg BEDTIME DEBBIE Administration Lidocaine HCl 20 ml 12/18/24 20:21 Lidocaine 1% 20 Ml INJ INTRA-OP PRN Post Delivery Methylergonovine Maleate 0.2 mg 12/18/24 20:21 Methylergonovine 0.2 Mg Tablet PO Q6HR PRN Heavy Bleeding Methylergonovine Maleate 0.2 mg 12/18/24 20:21 Methylergonovine 0.2 Mg/Ml Vial IM NOW PRN Bleeding Mineral Oil 30 ml 12/18/24 20:21 Mineral Oil 30 Ml Udc TOP PRN PRN Version Misoprostol 800 mcg 12/18/24 20:21 Misoprostol 200 Mcg Tablet WV NOW PRN Bleeding Misoprostol 400 mcg 12/18/24 20:21 Misoprostol 200 Mcg Tablet SL NOW PRN Bleeding Misoprostol 50 mcg 12/18/24 20:21 12/18/24 23:26 Misoprostol 25 Mcg Tablet PO 50 mcg Q4H PRN Administration cervical ripening Nalbuphine HCl 2.5 mg 12/19/24 09:48 Nalbuphine 20 Mg/Ml Ampul IV Q10M PRN Pruritis Naloxone HCl 0.2 mg 12/18/24 20:21 Naloxone 0.4 Mg/Ml Vial IV Q2MIN PRN Opiate Reversal Ondansetron HCl 4 mg 12/18/24 20:21 Ondansetron 4 Mg/2 Ml Inj IV Q4HR PRN Nausea And Vomiting Oxytocin 10 unit 12/18/24 20:21 Oxytocin 10 Unit/Ml Vial IM NOW PRN Bleeding Promethazine HCl 12.5 mg 12/18/24 20:18 Promethazine 12.5 Mg Supp WV Q4H PRN Nausea And Vomiting Sertraline HCl 50 mg 12/18/24 21:00 12/18/24 21:17 Sertraline 50 Mg Tablet PO 50 mg BEDTIME DEBBIE Administration Allergies: Allergies Allergy/AdvReac Type Severity Reaction Status Date / Time shrimp Allergy Severe Swelling Verified 11/30/24 13:43 of Lip/Tongue/Throat amoxicillin Allergy Mild Rash Verified 11/30/24 13:43 grapefruit Allergy Mild Rash Verified 11/30/24 13:43 banana AdvReac Intermediate Abdominal Verified 11/30/24 13:43 Pain Procedure Insertion date: 12/19/24 Insertion time: 10:05 Prep/Local: betadine x3 (Chloraprep) and 1% lidocaine (3ml) Interspace: L3-L4 Patient position: sitting Needle: 18 gauge Hustead (27 ga spinal needle for CSE) Loss of resistance with: saline SILVER at (cm): 8 Catheter placed at SKIN (cm): 16 Catheter in SPACE (cm): 8 Sensory level: T11 Insertion: Yes CSF, No Blood, No Paresthesia with insertion, No Paresthesia with injection and No Test dose reaction Initial Medications TEST DOSE time: 10:15 TEST DOSE: 1.5% lidocaine with epinephrine 1:200k (mL): 3 BOLUS DOSE time: 10:13 BOLUS DOSE (mL): 1 (intrathecal) BOLUS DOSE med: 0.25% bupivacaine Infusion INFUSION: 0.125% bupivacaine and with fentanyl 2 mcg/mL Initial rate (mL/hr): 6 (5ml q15min PCEA) Post-procedure Anesthesia date START: 12/19/24 Anesthesia time START: 09:55 <Katherin Starks, DO - Last Filed: 12/20/24 00:01> Infusion Subsequent interventions: 17:45 - Checked on pt. Per RN, she has been pushing her PCEA button frequently. Pt reports she is fairly comfortable. I increased the epidural rate from 6 to 10 ml/hr. Pt declines epidural bolus. She reports her BLE are very heavy, but she is able to move both. Dr. Mak at bedside and has just checked pt, who is now about 6.5 cm dilated, 80%. Pt had a prolonged decel a couple of hours prior that resolved with stopping pitocin and repositioning. Dr. Mak plans to continue monitoring and allow labor for now. Efrain 22:15 - Prepping for . Epidural assessed. Pt had loss of temp sensation B at T8 and down to B thighs. She reports she doesn't feel any contraction pain, just left-sided thigh cramping. Post-procedure Anesthesia date END: 12/19/24 Anesthesia time END: 22:29 Post-procedure Anesthesia Assessment: Yes CV function: HR/BP stable, Yes Resp function: RR/sat/airway adequate, Yes Post-op hydration adequate, Yes Pain control adequate, Yes Nausea & vomiting absent, Yes Temperature > 36 C, Yes Mental status appropriate and No Anesthesia complications
--- NOTE | 2024-12-19 13:04 | PM.OBPNLAB ---
Date/Time Date Patient Seen: 12/19/24 Time Patient Seen: 12:50 Pain Control Pain control: epidural Pelvic Exam Dilation (cm): 6 Effacement (%): 60 station: -3 Amniotic membrane status: Bulging Contractions Monitor mode: External Status status: Category l Monitor Accelerations: Present Monitor Decelerations: Absent Monitor Variability: Moderate Assessment and Plan Assessment: active labor Plan: begin patient augmentation Comments: MWB: Much more comfortable with epidural. Persistent abdominal itchiness relieved w/benadryl prn. FWB: Cat 1 tracing w/reactive strip. Labor: Fleming bulb out at 1100, now 6cm w/bulging bag. AROM with clear fluid, head well applied. Begin pitocin augmentation, titrate to adequate contraction pattern.
[2024-12-19] MEDS: OXYTOCIN PREMIX 30 UNIT/500 ML PLAST..BAG IV (14:23)
[2024-12-19] MEDS: FAMOTIDINE 20 MG TABLET PO (14:35)
--- NOTE | 2024-12-19 16:20 | PM.OBPNLAB ---
Date/Time Date Patient Seen: 12/19/24 Time Patient Seen: 13:56 Pain Control Comments: Called to bedside for prolonged deceleration with kulwinder in 70s. Upon my arrival heart rate had increased to 100s-110s with mother on right side. Pitocin was off with mother receiving supplemental O2 via mask. FSE placed for more accurate tracing of FHR. Monitored for an additional 5 minutes to ensure continuous accurate tracing. Pelvic Exam Dilation (cm): 6 Effacement (%): 60 station: -3 Amniotic membrane status: Ruptured Contractions Monitor mode: External Contraction frequency (min): 3 Contraction duration (min): 1 Contraction pattern: Regular Status status: Category ll Heart Rate Baseline: 140 Monitor Accelerations: Present Monitor Decelerations: Prolonged Monitor Variability: Moderate Comments: Prolonged T-cell from baseline 120 bpm to kulwinder 70s lasting from 15:44 to 15:56 with short intervening periods of returned to normal heart range, subsequently returned to baseline 140 bpm Assessment and Plan Assessment: active labor Comments: MWB: Relatively comfortable with epidural, managing abdominal itchiness with benadryl and calamine lotion FWB: Currently cat 2 tracing. Prolonged decel as above, likely due to maternal positioning and cord compression given ruptured status. Labor: Pitocin off while monitoring FHT for at least 30 min, restart when able per protocol.
--- NOTE | 2024-12-19 18:36 | PM.OBPNLAB ---
Date/Time Date Patient Seen: 12/19/24 Time Patient Seen: 17:35 Pain Control Pain control: epidural Comments: FHT with periods of minimal variability pretty restarting of Pitocin at this time. Mother otherwise comfortable without any new concerns or complaints. Pelvic Exam Dilation (cm): 6.5 Effacement (%): 80 station: -2 Amniotic membrane status: Ruptured Contractions Monitor mode: External Contraction frequency (min): 5 Contraction duration (min): 1 Contraction pattern: Irregular Status status: Category ll Heart Rate Baseline: 120 Monitor Accelerations: Present Monitor Decelerations: Absent Monitor Variability: Minimal Assessment and Plan Assessment: active labor Comments: MWB: Comfortable with epidural, no concerns. FWB: Currently cat 2 tracing w/periods of minimal variability. FSE dislodged during IUPC placement, new one placed. Labor: Minimal change, IUPC placed to assess for adequate ctx. Pitocin not yet restarted due to cat 2 tracing, restart when able per protocol.
[2024-12-19] MEDS: FENT 2MCG/ML BUPIV 0.125% EPI 200 MCG/100 ML PLAST..BAG 6 MCG EPIDURAL (19:14)
[2024-12-19] MEDS: ONDANSETRON 4 MG/2 ML INJ IV (20:57)
[2024-12-19] MEDS: SERTRALINE 50 MG TABLET PO (20:57)
--- NOTE | 2024-12-19 21:52 | PM.OBPNLAB ---
Date/Time Date Patient Seen: 12/19/24 Time Patient Seen: 21:52 Pain Control Pain control: epidural Comments: Called to bedside by nursing for prolonged deceleration lasting 7 minutes kulwinder of 80 bpm. Eventually returned to baseline 160 bpm with minimal variability. Pelvic Exam Dilation (cm): 7 Effacement (%): 80 station: -2 Amniotic membrane status: Ruptured Contractions Monitor mode: External Pitocin rate (mU/min): 6 Contraction frequency (min): 3 Contraction duration (min): 1 Contraction pattern: Irregular Status status: Category ll Heart Rate Baseline: 160 Monitor Accelerations: Present Monitor Decelerations: Prolonged Monitor Variability: Minimal Assessment and Plan Assessment: active labor Plan: Comments: MWB: Comfortable with epidural, anxious above baby's well being and wants to deliver the safest way possible. FWB: Currently cat 2 tracing w/minimal variability after prolonged 7 minute deceleration. Labor: Recommend delivery due to intolerance of labor remote from delivery. Consent form for section was reviewed with the patient. Risk of reaction to medication or anesthesia, risk of bleeding enough to require blood transfusion which she is agreeable to, risk of infection, risk of damage to internal structures such as bowel, bladder, ureters that could require additional surgery to repair. Consent form signed and questions answered. Pre-op instructions reviewed. Precautions reviewed.
[2024-12-19] MEDS: CITRIC ACID/SODIUM CITRATE 15 ML SOLUTION 30 ML PO (22:23)
[2024-12-19] MEDS: AZITHROMYCIN 500 MG in DEXTROSE 5% IN WATER 250 ML 250 MG IV (22:59)
--- NOTE | 2024-12-19 22:59 | SUR.OPER ---
Supine on Padded OR bed, head on pillow, safety belt at thigh, arms secured on padded arm boards at <90 degrees abduction. Bump under right buttock. Legs uncrossed with pillow under knees. Final position approved by Dr Mak and Dr Arteaga.
--- NOTE | 2024-12-19 23:34 | SUR.OPER ---
FHR 134 PRIOR TO INCISION, VIABLE BABY BOY BORN AT 2311, PLACENTA AND CORD BLOOD GIVEN TO OB RN.
[2024-12-19] MEDS: ACETAMINOPHEN IV 1,000 MG/100 ML VIAL 400 MG IV (23:35)
[2024-12-20 00:30] VITALS: BP 143/105; PULSE 102; RESP 12; TEMP 36.9; O2SAT 98
[2024-12-20 00:35] VITALS: BP 139/61; PULSE 92; RESP 23; O2SAT 97
--- NOTE | 2024-12-20 00:36 | P.OP_ITS ---
Operative Date/Time/Diagnoses Date of procedure: 12/19/24 Time of procedure: 23:54 Pre-op diagnosis: intolerance of labor Post-op diagnosis: same (Cephalopelvic disproportion) Procedure & Clinicians Procedure: Primary Low Transverse Section Same procedure(s) as scheduled: Yes Indications: Nonreassuring heart tracing remote from delivery Surgeon: Dannie Mak Click Yes if Unassisted: No Professor Computer Science: Jada Arteaga Reason for Professor Computer Science: Professor Computer Science required for the safe, effective, and timely completion of this surgery. The product safety technical assistant was necessary to retract upon entry into the abdomen and uterus. Assisted with delivery of the with fundal pressure. Assisted with closure with retraction, clipping of suture, and closure of the contralateral fascia Anesthesia Type: General and Epidural Operative Notes Findings: Viable male infant in cephalic position. Closure Type: primary Specimen(s): cord blood Intraoperative meds administered: Duramorph, Ketorolac and Pitocin Estimated Blood Loss (mL): 500 Blood products transfused: none Procedure in detail: Patient was taken to the operating room where epidural anesthesia was found to be adequate. She was then prepared and draped in the usual sterile fashion in the dorsal supine position with a leftward tilt. A Pfannenstiel incision was then made with a scalpel and carried through to the underlying layer of fascia sharply. The fascia was nicked in the midline, and the incision extended laterally with blunt traction. The superior aspect of the fascial incision was then grasped with Penelope clamps, elevated, and the underlying rectus muscles dissected off bluntly. Attention was then turned to the inferior aspect of the incision which, in similar fashion, was grasped, tented up with Penelope clamps, and rectus muscles dissected off bluntly. The rectus muscles were then in the midline, and peritoneum identified, tented up, and entered bluntly. The peritoneal opening was then extended superiorly and inferiorly with good visualization of the bladder. The bladder blade was then inserted and the vesicouterine peritoneum identified, grasped with pickups, and entered sharply with Metzenbaum scissors. This incision was then extended laterally and the bladder flap created digitally. The bladder blade was then inserted and the lower uterine segment incised in a transverse fashion with the scalpel. The uterine incision was then extended laterally with blunt traction. Upon entering the amniotic sac there was moderate amount of clear amniotic fluid. The bladder blade was removed and the head was noted to be wedged in the maternal pelvis in OP presentation. A vaginal hand was required to assist in dislodging head from maternal pelvis before it was ultimately delivered atraumatically. The nose and mouth were suctioned with bulb suction, and the remainder of the body delivered without difficulty. The cord was clamped and cut, and the infant was handed off to the waiting care team. Cord blood was collected and sent. At this point the patient became very distressed about amount of pain she was experiencing and was ultimately sedated with general anesthesia before proceeding with repair of the hysterotomy. The placenta was then removed by manual expression and the uterus was cleared of all clots and debris. The uterine incision was repaired with 0 Vicryl in a running, locked fashion. A second layer of same suture was used to obtain excellent hemostasis. The left corner of the hysterotomy was noted to be oozing, which was resolved with a figure of 8 stitch. Tubes and ovaries were examined and were found to be normal. The gutters were cleared of all clots, Perclot was applied to hysterotomy, and t he peritoneum reapproximated naturally without closure. The fascia was reapproximated with 0 Vicryl in a running fashion. The subcutaneous layer was copiously irrigated with warm normal saline. The subcutaneous fat was reapproximated with 3-0 Vicryl. The skin was closed with 3-0 Monocryl. An Aquacel dressing was placed. The uterus was expressed of a small amount of old blood. Sponge, lap, and needle counts were correct x2. The patient tolerated the procedure well and was taken to the recovery room in stable condition. Complications: none Baby 1: Delivery Date: 12/19/24 Delivery Time: 23:11 Infant Gender: Male Presentation: vertex Position: Occiput Posterior Placental Delivery Description: Expressed Cord Vessel Description: 3 Vessels score (1 min): 2 score (5 min): 6 score (10 min): 6 weight: 8 lb 7.84 oz Narrative: [place] initially stunned and demonstrated signs of TTN, required PPV for over 1 hour before eventually weaning to room air. See H&P for details. Post-operative Condition: stable Disposition: PACU Aftercare: routine postop
[2024-12-20 00:40] VITALS: BP 129/80; PULSE 86; RESP 13; O2SAT 98
[2024-12-20 00:47] VITALS: BP 132/65; PULSE 87; RESP 16; O2SAT 94
[2024-12-20 00:51] VITALS: PULSE 76; RESP 15; TEMP 36.9; O2SAT 95
[2024-12-20 00:52] VITALS: BP 122/67
[2024-12-20] MEDS: NALBUPHINE 20 MG/ML AMPUL 5 MG IV (02:25)
[2024-12-20] MEDS: diphenhydrAMINE 25 MG TABLET PO (02:26)
[2024-12-20] MEDS: ACETAMINOPHEN 325 MG TABLET 650 MG PO ×4 (02:59→21:00)
[2024-12-20] MEDS: BUTORPHANOL 1 MG/ML VIAL 0.5 MG IV (04:46)
[2024-12-20] MEDS: KETOROLAC 30 MG/ML VIAL IV ×3 (04:46→16:30)
[2024-12-20 05:45] LABS: Add Manual Diff / Slide Review NO; Hematocrit 33.0 % (36-46); Hemoglobin 10.8 g/dL (12.0-16.0); Lymphocytes Absolute Auto 600 /uL (1100-4500); Mean Corpuscular HGB Conc 32.6 % (30-36); Mean Corpuscular Hemoglobin 25.9 PG (26-34); Mean Corpuscular Volume 79.4 fL (80-100); Platelet Count 165 X10^3/uL (150-400)
[2024-12-20] MEDS: PRENATAL VIT,CALC/IRON/FOLIC 1 TABLET 1 TAB PO (09:04)
[2024-12-20] MEDS: LANOLIN OINT 7 GM 1 APPLIC TOP (17:10)
--- NOTE | 2024-12-20 17:27 | PM.OBPN.1 ---
Subjective - OB Subjective Patient comments: no complaints, pain well controlled, tolerating diet and flatus present baby status: doing well and nursing well [place] feeding status: exclusively breast feeding Date Patient Seen: 12/20/24 Exam Vital Signs (past 8 hours): Oxygen Delivery Method Room Air Narrative Exam Narrative: General: Well-appearing, well-nourished, no distress HEENT: Moist mucous membranes, no pallor CV: Regular rate and rhythm, no murmur auscultated Resp: CTAB, comfortable work of breathing Abdomen: Soft, bowel sounds present, fundus firm 1cm above umbilicus with appropriate tenderness, incision c/d/i Extremities: No edema, no calf tenderness or evidence of DVT Objective Labs 12/20/24 05:36 Labs: Laboratory Results - last 24 hr 12/20/24 05:36 WBC 14.6 H D RBC 4.16 Hgb 10.8 L Hct 33.0 L MCV 79.4 L MCH 25.9 L MCHC 32.6 RDW 13.6 Plt Count 165 Neut % (Auto) 91.8 H D Lymph % (Auto) 4.2 L [place] % (Auto) 3.5 Eos % (Auto) 0.1 L Baso % (Auto) 0.4 Neut # (Auto) 52607 H Lymph # (Auto) 600 L [place] # (Auto) 500 Eos # (Auto) 0 Baso # (Auto) 100 Assessment & Plan Plan day: 1 plan OB: routine postop care Comments: POD #1 s/p pLTCS Clinically stable, recovering well Pain management as needed support s/p consult Encourage ambulation, flatus/BM prior to discharge Bleeding appropriate for course, monitor Fundus elevated wo signs/sxs of bleeding, monitor Likely discharge home PPD #2 Time-Based Coding :: 15 minutes spent with patient and on the chart (including review of chart, obtaining history, exam, reviewing outside data, placing orders, documenting exam and treatment plan, and counseling patient) on 12/20/2024.
[2024-12-20] MEDS: SERTRALINE 50 MG TABLET PO (21:03)
[2024-12-21] MEDS: IBUPROFEN 600 MG TABLET PO ×4 (00:06→17:53)
[2024-12-21] MEDS: ACETAMINOPHEN 325 MG TABLET 650 MG PO ×3 (03:00→17:53)
[2024-12-21] MEDS: MAGNESIUM HYDROXIDE 30 ML UDC PO (07:54)
[2024-12-21] MEDS: PRENATAL VIT,CALC/IRON/FOLIC 1 TABLET 1 TAB PO (07:55)
--- NOTE | 2024-12-21 12:32 | PM.PN.1 ---
Subjective Subjective Date Patient Seen: 12/21/24 Time Patient Seen: 12:05 Interval history: Followed up with patient after her to address any questions she had about her and any other anesthesia-related issues. Pt is nursing her baby during my visit and appears relaxed and happy. She says she does not remember much about her besides screaming a lot and feeling pain. She says her told her she was screaming and at the same time thanking staff and telling them she was okay and trying to make everyone else feel better. I discussed with her that both her epidural and PIV, which had been working fine in L&D, suddenly quit working when she arrived in the OR. I hope that some of the epidural medication reached her, but I was not able to structural steel worker helper how much and it was obviously not enough. She remembers me talking to her about waiting to see her baby or going to sleep right away, and she says she was focused on getting her son out safely and wanted to make sure that happened. She doesn't remember going to sleep and says that she woke up in the recovery room and asked to be put back asleep because she didn't realize the surgery was over. I reminded her that she had answered my questions about pain several times before the baby came out by saying that she was feeling pressure, not pain, and wanted to see her son delivered safely, but I also acknowledged that she was clearly having pain during the surgery, which is why I got her off to sleep as soon as she had the opportunity to see her baby. I asked her about the burning pain that she had reported both during and after the . She says she has some sharp, right-sided pains that a nurse told her might be due to the surgeon stretching her belly during the case and might be due to nerves being cut. I reassured her that the incision is low in the abdomen, and it is unlikely that important nerves were cut during the surgery. It is possible that nerves were stretched while extricating the baby and causing her some discomfort. I told her to anticipate that to resolve within the next few weeks. She reported that every time her son cries, she feels contractions. I explained that that is Mother Nature at work, it is a very normal part of the experience, and it should improve over the next days and weeks. Patient expressed her thanks and gratitude for everyone's help in getting her son safely delivered. I told her I thought she had shown a lot of strength during the surgery because I know she did feel pain. I know the was not a great experience for her for lots of reasons, but I'm glad she did very well and has a beautiful baby now. Patient appears to have a great attitude and voiced no complaints about anesthesia or anything else related to her care to me. Exam Vital Signs (past 8 hours): Oxygen Delivery Method Room Air Objective Labs 12/20/24 05:36 [facility] Medical History (Updated 10/10/24 @ 15:29 by Dannie Mak MD) Infertility Bacterial vaginitis (~2023) Concussion Endometrial polyp Surgical History (Updated 06/07/24 @ 12:32 by Rachel Grigsby RN) [place] teeth extracted History of removal of skin mole (~2021) History of hysteroscopy (~03/2024) Family History (Updated 06/07/24 @ 11:06 by Rachel Grigsby RN) Aunt Breast cancer Grandmother Thyroid disease History of thyroid surgery Father Obesity Prediabetes Substance abuse Aunt H/O: hysterectomy POTS (postural orthostatic tachycardia syndrome) Grandfather Skin cancer Grandfather Dementia Uncle Congenital hip dysplasia Social History marital status: number of children: 0 household members: spouse lives independently: Yes caregiver/support person: No housing: house pets and animals: Yes (chickens, dog, cat) education level: vocational occupational status: employed (retail) current occupational exposures/hazards: No special malu needs: No travel history: recent (going to [place] next week) Smoking Status: Never smoker Tobacco: How many years used: 1 second hand exposure: Yes ( vapes, not around pt since ) alcohol intake: former (occasionally when not ) substance use type: does not use during the past year weight has: other (lost ~30 lb but gained it back after surgery) well-balanced diet: daily or most days (mostly in smoothies) daily servings fruits/ve-4 caffeine: Yes (quit with ) Assessment & Plan Time-Based Coding :: [TOTAL MINUTES] spent with patient and on the chart (including review of chart, obtaining history, exam, reviewing outside data, placing orders, documenting exam and treatment plan, and counseling patient) on [DATE].
[2024-12-21] MEDS: DOCUSATE 100 MG CAPSULE 200 MG PO (14:21)
--- NOTE | 2024-12-21 17:24 | P.DS_ITS ---
Discharge Providers Provider Date of admission: 12/18/24 18:53 Discharge Date: 12/21/24 Primary care physician: Brad HARRISON Provider Consults: 12/20/24 01:38 Consult to Boat Builder And Repairer Routine Comment: Discharge provider: Dannie Mak MD Summary Hospital Course Date Patient Seen: 12/21/24 Diagnoses: # delivery delivered #cephalopelvic disproportion #bipolar disorder # mother Hospital Course: Admitted for mIOL on 12/18/2024 due to worsening of bipolar and anxiety. Progressed adequately with augmentation to 7 cm dilation before undergoing urgent delivery for nonreassuring heart tracing due to multiple prolonged decelerations. She had a primary delivery of a live male complicated by cephalopelvic disproportion with head wedged in maternal pelvis requiring vaginal hand for delivery and significant pain during extraction despite epidural anesthesia requiring general anesthesia detention through case. Her course was uncomplicated. At discharge patient is ambulating well, tolerating normal diet, breast-feeding without difficulty, and pain is adequately controlled. She reports bleeding is similar to normal menses. Peripartum Data Delivery Method: Section complications: none 1: Gender: Male Disposition of : home Status at Discharge Cognitive/behavioral status at discharge: oriented Functional status at discharge: independent ambulation Overall status at discharge: patient is progressing back to baseline Time Spent with Patient Time attestation: Total time spent providing and/or coordinating discharge services: 30 minutes Objective Labs 12/20/24 05:36 Exam Vital Signs (past 8 hours): Oxygen Delivery Method Room Air Narrative Exam Narrative: General: Well-appearing, well-nourished, no distress HEENT: Moist mucous membranes, no pallor CV: Regular rate and rhythm, no murmur auscultated Resp: CTAB, comfortable work of breathing Abdomen: Soft, bowel sounds present, fundus firm below umbilicus with appropriate tenderness, incision c/d/i with skin edges well approximated Extremities: No edema, no calf tenderness or evidence of DVT Discharge Plan Discharge Plan Patient Disposition: Home Discharge orders & Medications Prescriptions: New acetaminophen 325 mg Tablet 650 mg PO Q6H Qty: 60 1RF docusate sodium 100 mg Capsule 200 mg PO DAILY Qty: 60 0RF ibuprofen 600 mg Tablet 600 mg PO Q6H Qty: 60 1RF Purelan Cream 1 applic topical PRN PRN (Reason: Skin protectant) Qty: 7 5RF magnesium hydroxide [Milk of Magnesia] 400 mg/5 mL Suspension 30 ml PO BEDTIME PRN (Reason: Constipation) Qty: 355 1RF polyethylene glycol 3350 17 gram/dose powder 17 g PO DAILY Qty: 510 1RF oxycodone 5 mg Tablet 5 mg PO Q4-6H PRN (Reason: Pain, Moderate (4-6)) Qty: 20 0RF Continued lamotrigine 200 mg tablet 200 mg PO DAILY famotidine 20 mg tablet 20 mg PO BID Qty: 60 2RF PNV no.95-ferrous fumarate-FA [ Multivitamins] 28 mg iron- 800 mcg tablet 1 tab PO DAILY sertraline 50 mg tablet 50 mg PO DAILY Discontinued ondansetron 8 mg tablet,disintegrating 8 mg PO BID PRN (Reason: nausea and vomiting) Qty: 60 1RF promethazine [Promethegan] 12.5 mg suppository 12.5 mg [place] Q4-6H PRN (Reason: nausea and vomiting) Qty: 12 2RF diphenhydramine HCl 25 mg capsule 25 mg PO Q4-6H PRN (Reason: nausea and vomiting) Qty: 30 1RF Follow up/Referrals: Dannie Mak MD [Physician, Family Practice] Referral Note: Please follow up w/ Dr. Mak for your 1 week incision check on Wednesday, December 25, 2024 @ 1:30 PM, please arrive at 1:15 PM for check-in. Provider,Brad HARRISON [Primary Care Provider, Family Practice] Lamar Briceño, MS [Registered Nurse, Nursing] Referral Note: Follow up with Rose Briceño (communications consultant) on Tuesday, December 24, 2024, at 10:00 AM, located at the [address] [place] [address]. Diet/Activity/Treatments Diet: Regular Visit Report/Discharge Packet Stand Alone Forms: Discharge: Care, Patient Portal/API, Stroke Signs & Symptoms Discharge Data Primary Care Provider: ProviderBrad
[2024-12-21 19:55] VITALS: BP 122/67; PULSE 76; RESP 15; TEMP 36.9
== END 2024-12-21 19:50 | disposition home or self-care (01) | DRG 788 ==
PROVIDERS: Admitting Provider Family Medicine; Referring Provider Family Medicine; Visit Provider Family Medicine
PROC: 10D00Z1 Extraction of Products of Conception, Low, Open Approach (ICD-10-PCS; CPT 59514; principal; 2024-12-19 22:30)
DX: O76 Abnormality in fetal heart rate and rhythm complicating labor and delivery (principal); O65.9 Obstructed labor due to maternal pelvic abnormality, unspecified; Z3A.39 39 weeks gestation of pregnancy; Z37.0 Single live birth; O99.344 Other mental disorders complicating childbirth; F31.9 Bipolar disorder, unspecified; F41.9 Anxiety disorder, unspecified
CPT/HCPCS: 36415; 59050; 59200; 85025; 86850; 86900; 86901; A9270; G0379; J0131; J0595; J0690; J1100; J1171; J1885; J2274; J2300; J2405; J2590; J2704; J3490